=== PATIENT | male | born 1970 | race Caucasian/White ===

== ENCOUNTER 2017-03-27 12:45 | Outpatient (CLI) | payer OTHER ==
[~2017-03-27] VITALS: Ht 170.2 cm; Wt 80.1 kg
[2017-03-27 13:34] VITALS: BP 131/89; PULSE 58
[2017-03-27 14:50] VITALS: BP 116/77; PULSE 58
[2017-03-27 14:55] VITALS: BP 112/77; PULSE 58
[2017-03-27 15:25] VITALS: BP 107/73; PULSE 58
[2017-03-27 15:40] VITALS: BP 104/71; PULSE 55
[2017-03-27 15:59] VITALS: BP 114/77; PULSE 59
[2017-03-27 17:42] LABS: CEREBROSPINAL TUBE #2
[2017-03-27 17:43] LABS: CSF APPEARANCE CLEAR; CSF COLOR COLORLESS
[2017-04-02 08:52] LABS: ALBUMIN CSF 15.1 mg/dL (<=27.0); CSF IGG/ALBUMIN 0.11 (<=0.21); CSF,IGG 1.6 mg/dL (<=8.1)
[2017-04-02 09:05] LABS: CSF SYNTHESIS RATE 0.5 mg/24 h (<=12); CSF-IGG INDEX 0.58 (<=0.85); IGG/ALBUMIN SERUM 0.19 (<=0.40)
== END 2017-03-27 16:11 | disposition home or self-care (01) ==
LOC: COL.RAD 12:45
PROVIDERS: Psychiatry & Neurology Neurology
DX: G37.9 Demyelinating disease of central nervous system, unspecified (principal)

== ENCOUNTER 2018-02-09 07:58 | Day surgery (SDC) | payer OTHER ==
[~2018-02-09] VITALS: Ht 170.2 cm; Wt 79.4 kg
[2018-02-09 08:11] VITALS: BP 117/87; PULSE 66; TEMP 97.6
[2018-02-09 10:12] VITALS: BP 111/85; PULSE 68; TEMP 97.3
[2018-02-09 10:15] VITALS: BP 110/81; PULSE 64
[2018-02-09 10:30] VITALS: BP 103/76; PULSE 57
[2018-02-09 10:45] VITALS: BP 104/80; PULSE 64
== END 2018-02-09 10:57 | disposition home or self-care (01) ==
LOC: SDCO 07:58
DX: K92.1 Melena (principal); D50.0 Iron deficiency anemia secondary to blood loss (chronic); G43.909 Migraine, unspecified, not intractable, without status migrainosus; G25.0 Essential tremor; Z98.52 Vasectomy status
CPT/HCPCS: OP; J2250; J3010; J7030